=== PATIENT | male | born 1985 | race Caucasian/White ===

== ENCOUNTER 2021-07-12 23:08 | Emergency (ER) | payer BC ==
[2021-07-13] MEDS ORDERED: Bacitracin 1 PK ONE (00:27)
== END 2021-07-13 00:29 | disposition home or self-care (01) ==
LOC: NAV ERS 23:08
DX: S61.412A Laceration without foreign body of left hand, initial encounter (principal); W26.0XXA Contact with knife, initial encounter
CPT/HCPCS: 12001